=== PATIENT | female | born 1940 | race Two or more races ===

== ENCOUNTER → 2024-03-05 | Outpatient (CLI) | payer MEDICARE, MEDICAID, SELFPAY ==
--- NOTE | 2024-03-05 | XR_ITS ---
Examination: Forearm, left, 2 views. Technique: Forearm, AP, lateral 2 views Date and time of exam: 2023 hrs. Indication: Forearm pain 6 months Findings: Limited AP view Soft tissue vascular calcification Significant osteopenia No fracture Moderate elbow and radiocarpal joint osteoarthritis Tiny posterior bony olecranon spur, 2 mm Impression: No fracture Osteoarthritis as above
--- NOTE | 2024-03-05 | XR_ITS ---
Examination: Left wrist 2 views Technique one AP lateral left wrist 2 views Exam date and time: March 05, 2024 0731 hrs. Indications: Left wrist pain 6 months. Findings: Severe osteopenia No fracture or dislocation Soft tissue vascular calcification Significant narrowing radiocarpal, navicular trapezium, first carpometacarpal joints No avascular necrosis Impression: Osteoarthritis as above
--- NOTE | 2024-03-05 | XR_ITS ---
Examination: Left hand 2 views Technique one AP lateral left hand 2 views Exam date and time: March 05, 2024 0730 hrs. Indications: Left hand pain 6 months. Findings: Significant osteoarthritis radiocarpal, first carpometacarpal joints Significant osteoarthritis first metacarpophalangeal joint and interphalangeal joints No erosive arthritis Prominent osteopenia Soft tissue vascular calcification No fracture Impression: Significant osteoarthritis
[2024-03-05 08:47] LABS: Uric Acid 6.1 mg/dL (3.1-7.8)
== END | disposition home or self-care (01) ==
LOC: CDIM 06:44 → COPL 07:37
PROVIDERS: PCP Internal Medicine; Referring Provider Nurse Practitioner Family; Visit Provider Radiology Diagnostic Radiology
DX: M19.032 Primary osteoarthritis, left wrist (principal); M19.042 Primary osteoarthritis, left hand; M1A.0420 Idiopathic chronic gout, left hand, without tophus (tophi)
CPT/HCPCS: 36415; 73090; 73100; 73120; 84550

== ENCOUNTER → 2024-09-23 | Outpatient (CLI) | payer MEDICARE, MEDICAID, SELFPAY ==
--- NOTE | 2024-09-23 15:45 | XR_ITS ---
Examination: Foot, right, 3 views Technique: AP, oblique, lateral views foot, 3 views Date and time of exam: September 23, 2024, 1554 hours INDICATIONS: Right foot swelling and pain this week. FINDINGS: Significant osteopenia. Moderate to advanced osteoarthritis first metatarsophalangeal joint No acute fracture No cortical bone destruction Large plantar posterior bony calcaneal spurs Ossification in the plantar fascia IMPRESSION: Large plantar posterior bony calcaneal spurs Ossification in the plantar fascia
--- NOTE | 2024-09-23 15:45 | XR_ITS ---
Examination: Right ankle 2 views Technique one AP lateral right ankle 2 views Date and time: September 23, 2024 1605 hours INDICATIONS: Right ankle swelling and pain beginning one month ago. FINDINGS: Prominent osteopenia Extensive soft tissue vascular calcification Periosteal new bone along the distal tibial shaft on the lateral side IMPRESSION: Periosteal new bone along the distal tibial shaft on the lateral side, consider osteomyelitis Suggest MRI ankle pre and postcontrast follow-up
== END | disposition home or self-care (01) ==
PROVIDERS: PCP Nurse Practitioner Family; Referring Provider Nurse Practitioner Family; Visit Provider Nurse Practitioner Family
DX: M86.8X6 Other osteomyelitis, lower leg (principal); M77.31 Calcaneal spur, right foot; M62.89 Other specified disorders of muscle
CPT/HCPCS: 73600; 73630